=== PATIENT | female | born 1985 | race American Indian/Alaskan Native ===

== ENCOUNTER 2017-12-07 10:41 | Emergency (ER) | payer OTHER ==
[2017-12-07] MEDS ORDERED: ZOFRAN IV ONE (11:11)
[2017-12-07] MEDS ORDERED: MORPHINE IV ONE (11:11)
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
[2017-12-07] MEDS ORDERED: SUBLIMAZE IV ONE (11:31)
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
[2017-12-07] MEDS ORDERED: NORCO 5/325 PO ONE (13:52)
[2017-12-07 14:02] VITALS: BP 96/54
== END 2017-12-07 14:18 | disposition home or self-care (01) ==
LOC: ED 10:41
DX: S59.911A Unspecified injury of right forearm, initial encounter (principal); M79.604 Pain in right leg; M54.9 Dorsalgia, unspecified; Z88.8 Allergy status to other drugs, medicaments and biological substances; Z88.1 Allergy status to other antibiotic agents; Z91.013 Allergy to seafood; V89.2XXA Person injured in unspecified motor-vehicle accident, traffic, initial encounter; Y93.89 Activity, other specified; Y92.89 Other specified places as the place of occurrence of the external cause; Y99.8 Other external cause status
CPT/HCPCS: 72040; 72070; 72100; 73590; 96374; 96375; 99284; J2405; J3010